=== PATIENT | male | born 1960 | race African-American/Black ===

== ENCOUNTER → 2019-02-11 | Outpatient (CLI) | payer OTHER | END | disposition home or self-care (01) | LOC: RADPV 10:22 | PROVIDERS: ATTEND Orthopaedic Surgery | DX: M46.03 Spinal enthesopathy, cervicothoracic region (principal); M47.897 Other spondylosis, lumbosacral region; M46.04 Spinal enthesopathy, thoracic region; M75.81 Other shoulder lesions, right shoulder | CPT/HCPCS: 72040; 72072; 72100 ==